=== PATIENT | male | born 1965 | race Caucasian/White ===

== ENCOUNTER → 2016-12-28 | Outpatient (CLI) | payer BC | LOC: RAD 08:51 | DX: N50.89 Other specified disorders of the male genital organs (principal) ==

== ENCOUNTER → 2018-01-19 | Outpatient (CLI) | payer OTHER | LOC: RAD 09:46 | DX: E04.1 Nontoxic single thyroid nodule (principal) ==

== ENCOUNTER → 2022-05-18 | Outpatient (CLI) | payer BC ==
[2022-05-18 12:39] LABS: BASO # 0.02 K/mm3 (0.02-0.10); EOS # 0.09 K/mm3 (0.04-0.40); EOS % 1.6 % (0.0-4.0); HEMATOCRIT 45.9 % (42.0-52.0); HEMOGLOBIN 15.9 g/dL (13.5-18.0); LYMPH# 1.84 K/mm3 (1.50-4.00); MEAN CELL VOLUME 90 fl (78-100); MEAN CORPUSCULAR HEMOGLOBIN 31 pg (27-31); MEAN CORPUSCULAR HGB CONC 35 g/dL (33-37); MEAN PLATELET VOLUME 8.9 fl (7.4-10.4); MONO # 0.34 K/mm3 (0.20-0.80); NEU # 3.28 K/mm3 (1.40-6.50); PLATELET COUNT 214 K/mm3 (130-400); RED BLOOD COUNT 5.09 M/mm3 (4.20-5.60); RED CELL DISTRIBUTION WIDTH 11.9 % (11.5-14.5); WHITE BLOOD COUNT 5.6 K/mm3 (4.8-10.8)
[2022-05-18 12:52] LABS: POTASSIUM 3.8 mmol/L (3.5-5.1); SODIUM 138 mmol/L (136-145)
[2022-05-18 12:53] LABS: CALCIUM 9.3 mg/dL (8.3-10.5)
[2022-05-18 12:54] LABS: GLUCOSE 181 mg/dL (75-110)
[2022-05-18 12:55] LABS: CARBON DIOXIDE 22 mmol/L (22-29)
[2022-05-18 12:59] LABS: D-DIMER 0.23 mg/L FEU (0.15-0.50)
[2022-05-18 13:12] LABS: TROPONIN-I < 0.030 ng/mL (<0.030)
== END ==
LOC: LAB 12:23
PROVIDERS: Family Medicine
DX: R06.02 Shortness of breath (principal); R06.00 Dyspnea, unspecified

== ENCOUNTER → 2022-07-10 | Outpatient (CLI) | payer BC | LOC: RAD 07:45 | DX: K57.90 Diverticulosis of intestine, part unspecified, without perforation or abscess without bleeding (principal); N40.0 Benign prostatic hyperplasia without lower urinary tract symptoms | CPT/HCPCS: Q9967 ==

== ENCOUNTER → 2023-12-08 | Outpatient (CLI) | payer BC | LOC: RAD 11:09 | DX: Z01.818 Encounter for other preprocedural examination (principal); M25.562 Pain in left knee; G89.29 Other chronic pain ==